=== PATIENT | female | born 1930 | race Caucasian/White ===

== ENCOUNTER 2016-11-22 11:09 | Emergency (ER) | payer MEDICARE, OTHER | END 2016-11-22 11:12 | disposition short-term general hospital (02) | LOC: ER 11:09 | DX: S32.592A Other specified fracture of left pubis, initial encounter for closed fracture (principal); S30.0XXA Contusion of lower back and pelvis, initial encounter; N17.9 Acute kidney failure, unspecified; I48.91 Unspecified atrial fibrillation; I10 Essential (primary) hypertension; W17.89XA Other fall from one level to another, initial encounter; Y92.009 Unspecified place in unspecified non-institutional (private) residence as the place of occurrence of the external cause | CPT/HCPCS: 36415; 73502-LT; 96360 ==